=== PATIENT | female | born 1965 | race Caucasian/White ===

== ENCOUNTER 2017-09-28 12:33 | Outpatient (CLI) | payer BC ==
[~2017-09-28 12:33] MED LIST: Gadobenate Dimeglumine 529 MG/1 ML (20ML VIAL) ONE
--- NOTE | 2017-09-28 15:53 | MRI ---
MRI THORACIC SPINE WITH AND WIHTOUT IV CONTRAST: HISTORY: Multiple sclerosis. COMPARISON: 01/25/17. FINDINGS: The hemangioma in the T12 vertebral body is stable. The small right paracentral disk protrusion at T 8-9 level shows no significant interval change. The vertebral body heights and marrow signal are oth erwise well maintained. There is no evidence of cord compression. The thoracic spinal cord demonstr ates normal course, caliber, and signal. No abnormal post contrast enhancement is seen. The paraspi nal musculature is normal. IMPRESSION: No evidence of demyelinating plaques in the thoracic spine. POS: [facility]
--- NOTE | 2017-09-28 15:56 | MRI ---
MRI CERVICAL SPINE WITH AND WITHOUT IV CONTRAST: HISTORY: Multiple sclerosis. COMPARISON: 01/25/17. FINDINGS: The vertebral body heights and marrow signal are maintained. Small disk-osteophyte complexes causing abutment of the intrathecal sac is stable at C5-6 and C6-7 levels. There is mild bilateral foramina l narrowing at C6-7 level. No significant central canal stenosis seen. The cervical spinal cord demonstrates a stable minimal syrinx at C5-6 through C6-7 levels. There is a stable focus of T2 hyperintensity in the posterior left cord of the C4-5 disk level. No associate d postcontrast enhancement is seen. No new cord lesions are identified. IMPRESSION: Stable exam since 01/25/17. No evidence of new or active demyelinating plaques. POS: [facility]
--- NOTE | 2017-09-28 16:00 | MRI ---
MRI BRAIN WITH AND WITHOUT IV CONTRAST: HISTORY: Multiple sclerosis. COMPARISON: 07/23/16. FINDINGS: Multiple foci of T2 prolongation in the subcortical and periventricular white matter are again seen c onsistent with patient's history of multiple sclerosis. A few lesions involving the corpus callosum are stable. No new lesions are identified. No abnormal post contrast enhancement is seen. No restr icted diffusion is noted. No evidence of infarct, hemorrhage, mass, midline shift, or extraaxial fluid collection is seen. The re is mild mucosal disease in the right sphenoid sinus. IMPRESSION: Stable exam. No evidence of new or active demyelinating plaques. POS: [facility]
== END 2017-09-28 12:34 | disposition home or self-care (01) ==
LOC: SCSMRI 12:33
PROVIDERS: ATTEND Psychiatry & Neurology Neurology
DX: G35 Multiple sclerosis (principal)
CPT/HCPCS: 70553; 72156; 72157; A9579

== ENCOUNTER 2018-04-28 08:17 | Outpatient (CLI) | payer BC | END 2018-04-28 08:18 | disposition home or self-care (01) | LOC: BICMAMMO 08:17 | PROVIDERS: ATTEND Family Medicine | DX: Z12.31 Encounter for screening mammogram for malignant neoplasm of breast (principal); R92.1 Mammographic calcification found on diagnostic imaging of breast | CPT/HCPCS: 77063; 77067 ==

== ENCOUNTER 2018-12-23 08:18 | Outpatient (CLI) | payer BC ==
--- NOTE | 2018-12-23 10:47 | MRI ---
Exam: Brain MRI with and without contrast HISTORY: Multiple sclerosis. Patient was recently started on any medication. Examination requested to reassess baseline and any interval change. COMPARISON: 09/28/2017, 12/09/2015, 07/23/2016, 12/09/2015 FINDINGS: Gradient echo sequence: No hemorrhage Calvarium: Appropriate T1 marrow signal intensity Midline brain parenchyma: Unremarkable Cerebrum:No parenchymal mass effect or midline shift. Brain volume, age-appropriate. Cortical perez-wh ite matter differentiation is preserved. There are essentially stable T2 and FLAIR white matter hyperintensities. No significant progression since December 09, 2015. No evidence of restricted diffusion or enhancement to suggest an actively demyelinating plaque. Ventricles: No evidence of hydrocephalus. Sinuses and mastoid air cells: Mucosal thickening involving the right maxillary sinus, slightly progr essed when compared to the previous examination. Diffusion: Central arterial flow is maintained. Absent restricted diffusion. Postcontrast images: No pathologic enhancement of the brain parenchyma. IMPRESSION: No evidence of active demyelination. No evidence of progression of disease.
== END 2018-12-23 08:19 | disposition home or self-care (01) ==
LOC: BICMRI 08:18
PROVIDERS: ATTEND Psychiatry & Neurology Neurology
DX: G35 Multiple sclerosis (principal)
CPT/HCPCS: 70553

== ENCOUNTER 2020-12-19 09:07 | Outpatient (CLI) | payer BC | END 2020-12-19 09:08 | disposition home or self-care (01) | LOC: BICMAMMO 09:07 | PROVIDERS: ATTEND Family Medicine | DX: Z12.31 Encounter for screening mammogram for malignant neoplasm of breast (principal) | CPT/HCPCS: 77063; 77067 ==

== ENCOUNTER 2022-04-06 08:10 | Outpatient (CLI) | payer BC | END 2022-04-06 08:11 | disposition home or self-care (01) | LOC: SCSMRI 08:10 | PROVIDERS: ATTEND Orthopaedic Surgery Hand Surgery | DX: S63.591A Other specified sprain of right wrist, initial encounter (principal) ==

== ENCOUNTER 2022-06-18 09:09 | Outpatient (CLI) | payer BC ==
[2022-06-18 10:27] LABS: #Eosinphils 0.1 10x3/uL (0.0-0.5); #Monocytes 0.3 10x3/uL (0.0-1.1); #Neutrophils 1.9 10x3/uL (1.5-8.4); %Basophils 1.4 % (0.0-2.0); %Eosinophils 2.5 % (0.0-6.0); %Lymphocytes 19.1 % (18.0-47.0); %Monocytes 9.7 % (0.0-10.0); %Neutrophils 66.9 % (40.0-75.0); Hemoglobin 11.9 g/dL (12.0-15.5); Mean Corpuscular HGB CONC 32.8 g/dL (32.0-36.0); Mean Corpuscular Hemoglobin 29.1 pg (27.0-33.0); Mean Corpuscular Volume 88.8 fl (81.6-98.3); Mean Platelet Volume 10.3 fl (7.4-10.4); Platelet Count 204 10x3/uL (150-450); RBC Distribution Width 13.1 % (11.5-14.5); Red Blood Cell (RBC) Count 4.09 10x6/uL (3.90-5.03); White Blood Cell (WBC) Count 2.8 10x3/uL (3.5-10.5)
== END 2022-06-18 09:10 | disposition home or self-care (01) ==
LOC: LABBT 09:09
PROVIDERS: ATTEND Orthopaedic Surgery Hand Surgery
DX: Z01.818 Encounter for other preprocedural examination (principal); S63.591A Other specified sprain of right wrist, initial encounter; M77.8 Other enthesopathies, not elsewhere classified
CPT/HCPCS: 85025; 93005; 93010

== ENCOUNTER 2022-08-10 12:34 | Day surgery (SDC) | payer BC ==
[2022-08-07 11:52] VITALS: BMI 21.1
[2022-08-10] MEDS ORDERED: Bupivacaine 0.25% HCL 30 ML VIAL ONE (15:06)
[2022-08-10] MEDS ORDERED: Neomycin-Polymyxin 1 ML AMP ONE (15:26)
[2022-08-10] MEDS ORDERED: Bacitracin Zinc Ointment 30 gm TUBE ONE (15:26)
[2022-08-10] MEDS ORDERED: Bupivacaine PF 0.5% 30 ML VIAL ONE (15:26)
[2022-08-10] MEDS ORDERED: HYDROmorphone 0.5 MG/0.5 ML SYRINGE ONE (15:29)
[2022-08-10] MEDS ORDERED: fentaNYL PF 100 MCG/2 ML SYRINGE ONE (15:29)
[2022-08-10] MEDS ORDERED: Dexmedetomidine 200 MCG/2 ML VIAL ONE (15:30)
== END 2022-08-10 16:03 | disposition home or self-care (01) ==
LOC: SDC 12:34
PROVIDERS: ATTEND Orthopaedic Surgery Hand Surgery
DX: S63.591A Other specified sprain of right wrist, initial encounter (principal); M77.8 Other enthesopathies, not elsewhere classified; Z53.8 Procedure and treatment not carried out for other reasons; Z79.61 Long term (current) use of immunomodulator; Z79.899 Other long term (current) drug therapy
CPT/HCPCS: J1170; S0020

== ENCOUNTER 2022-08-12 11:18 | Day surgery (SDC) | payer BC ==
[2022-08-11 15:45] VITALS: BMI 21.1
[2022-08-12] MEDS ORDERED: Bupivacaine PF 0.5% 30 ML VIAL ONE (13:53)
[2022-08-12] MEDS ORDERED: Betamet Acet/Betamet Na Ph 30 MG/5 ML VIAL ONE (13:53)
[2022-08-12] MEDS ORDERED: Bacitracin Zinc Ointment 30 gm TUBE ONE (13:53)
[2022-08-12] MEDS ORDERED: Neomycin-Polymyxin 1 ML AMP ONE (14:18)
[2022-08-12] MEDS ORDERED: Thrombin 5000 UNITS/5 ML VIAL ONE (14:18)
[2022-08-12] MEDS ORDERED: CEFAZOLIN 2 GM VIAL ONE (14:23)
[2022-08-12] MEDS ORDERED: Sodium Chloride 0.9% 100 ML ONE (14:23)
[2022-08-12] MEDS ORDERED: Lidocaine 1% PF 5 ML VIAL ONE (14:34)
[2022-08-12] MEDS ORDERED: PROPOFOL 200 MG/20 ML VIAL ONE (14:34)
[2022-08-12] MEDS ORDERED: Ondansetron PF 4 MG/2 ML Vial ONE (14:34)
[2022-08-12] MEDS ORDERED: ePHEDrine 50 MG/ML VIAL ONE (14:34)
[2022-08-12] MEDS ORDERED: PHENYLEPHRINE-NS 100 MCG/ML 10 ML SYRINGE ONE (14:34)
[2022-08-12] MEDS ORDERED: Phenylephrine 10 MG/ML VIAL ONE (14:44)
[2022-08-12] MEDS ORDERED: EPINEPHrine 1 MG/ML AMP ONE (15:04)
[2022-08-12] MEDS ORDERED: Fentanyl 100 MCG/2 ML VIAL ONE ×2 (18:11→19:08)
[2022-08-12] MEDS ORDERED: Ketorolac Tromethamine 30 MG/ML VIAL ONE (18:12)
[2022-08-12] MEDS ORDERED: Promethazine HCl 25 MG/ML VIAL ONE (18:30)
[2022-08-12] MEDS ORDERED: HYDROcodone/Acetaminophen 5/325 mg Tablet ONE (19:20)
== END 2022-08-12 20:25 | disposition home or self-care (01) ==
LOC: SDC 11:18
PROVIDERS: ATTEND Orthopaedic Surgery Hand Surgery
PROC: 0PBK0ZZ Excision of Right Ulna, Open Approach (ICD-10-PCS; principal; 2022-08-12)
PROC: 0LB50ZZ Excision of Right Lower Arm and Wrist Tendon, Open Approach (ICD-10-PCS; principal; 2022-08-12)
PROC: 0RBN4ZZ Excision of Right Wrist Joint, Percutaneous Endoscopic Approach (ICD-10-PCS; principal; 2022-08-12)
DX: S63.591A Other specified sprain of right wrist, initial encounter (principal); M65.88 Other synovitis and tenosynovitis, other site; M25.831 Other specified joint disorders, right wrist; M77.8 Other enthesopathies, not elsewhere classified; G35 Multiple sclerosis; D72.819 Decreased white blood cell count, unspecified; E03.9 Hypothyroidism, unspecified; Z87.891 Personal history of nicotine dependence; Z79.61 Long term (current) use of immunomodulator; Z79.899 Other long term (current) drug therapy
CPT/HCPCS: C1713; J0171; J0702; J1885; J2370; J2405; J2550; J2704; J3010; J3490; S0020

== ENCOUNTER 2023-02-23 07:54 | Outpatient (CLI) | payer BC | END 2023-02-23 07:55 | disposition home or self-care (01) | LOC: BICMAMMO 07:54 | PROVIDERS: ATTEND Family Medicine | DX: Z12.31 Encounter for screening mammogram for malignant neoplasm of breast (principal); Z13.820 Encounter for screening for osteoporosis; M85.89 Other specified disorders of bone density and structure, multiple sites; Z78.0 Asymptomatic menopausal state | CPT/HCPCS: 77063; 77067; 77080 ==

== ENCOUNTER 2025-03-02 09:21 | Outpatient (CLI) | payer OTHER | END 2025-03-02 09:22 | disposition home or self-care (01) | LOC: BICMAMMO 09:21 | PROVIDERS: ATTEND Family Medicine | DX: Z12.31 Encounter for screening mammogram for malignant neoplasm of breast (principal) | CPT/HCPCS: 77063; 77067 ==